=== PATIENT | male | born 1950 | race Caucasian/White ===

== ENCOUNTER 2019-06-23 06:06 | Inpatient (IN) | payer MEDICARE ==
[~2019-06-23] VITALS: Ht 185.4 cm; Wt 100.3 kg
[2019-06-23 06:18] LABS: BASOPHILS ABSOLUTE AUTO 0.03 K/mm3 (0.00-0.23); BASOPHILS PERCENT AUTO 0 % (0-2); EOSINOPHILS ABSOLUTE AUTO 0.07 K/mm3 (0.00-0.68); EOSINOPHILS PERCENT AUTO 1 % (0-6); Hematocrit 47.3 % (37.0-53.0); Hemoglobin 15.7 g/dL (13.5-17.5); IMMATURE GRAN ABSOLUTE AUTO 0.04 K/mm3 (0.00-0.10); IMMATURE GRAN PERCENT AUTO 0 % (0-1); LYMPHOCYTES ABSOLUTE AUTO 1.42 K/mm3 (0.84-5.20); LYMPHOCYTES PERCENT AUTO 14 % (21-46); MONOCYTES ABSOLUTE AUTO 0.75 K/mm3 (0.16-1.47); MONOCYTES PERCENT AUTO 7 % (4-13); Mean Corpuscular HGB 31.2 pg (26.0-34.0); Mean Corpuscular HGB Conc 33.2 g/dL (31.5-36.5); Mean Corpuscular Volume 94 fL (80-100); Mean Platelet Volume 9.6 fL (9.1-12.4); NEUTROPHILS ABSOLUTE AUTO 7.86 K/mm3 (1.96-9.15); NEUTROPHILS PERCENT AUTO 77 % (41-73); Platelet Count 169 K/mm3 (150-400); RDW Coefficient Variation 13.6 % (11.7-14.2); RDW Standard Deviation 46.9 fL (35.1-46.3); Red Blood Cell Count 5.03 M/mm3 (4.30-5.90); White Blood Cell Count 10.17 K/mm3 (4.00-11.30)
[2019-06-23 06:44] LABS: Alanine Aminotransfer (ALT/SGP 29 U/L (12-78); Albumin, Blood 3.8 g/dL (3.4-5.0); Albumin/Globulin Ratio 0.9 (0.8-1.8); Alk Phos 64 U/L (50-136); Anion Gap 7 mmol/L (6-16); Aspartate Aminotrans (AST/SGOT 52 U/L (12-37); Bilirubin, Total 0.4 mg/dL (0.1-1.0); Blood Urea Nitrogen 15 mg/dL (8-24); Bun/Creatinine Ratio 18.8 (12.0-20.0); CO2, Blood 24 mmol/L (21-32); Calcium, Blood 8.3 mg/dL (8.5-10.1); Chloride, Blood 110 mmol/L (98-108); Globulin, Blood 4.2 g/dL (2.2-4.0); Glomerular Filtration Rate >60 (60-); Glucose, Blood 133 mg/dL (70-99); Potassium, Blood 3.9 mmol/L (3.5-5.5); Sodium, Blood 141 mmol/L (136-145)
[2019-06-23 07:22] LABS: Prothrombin Time Results 10.6 Sec (9.7-11.5)
--- NOTE | 2019-06-23 10:00 | NUR ---
INITIAL ASSESSMENT PATIENT ARRIVED TO UNIT AT 0950 FROM [employer]UTUAL FUND MANAGER. PATIENT CALM, PLEASANT, COOPERATIVE. PATIENT ALERT AND ORIENTED X 4, AFEBRILE. PATIENT DENIES PAIN OR CHEST PRESSURE. PATIENT SATTING 90% AND GREATER ON RA. LUNGS CLEAR T/O. PATIENT DENIES COUGH. PATIENT IN FIRST DEGREE BLOCK WITH FREQUENT PVCS. HR 50S TO 80S. BP STABLE. GI WNL- DENIES NAUSEA. WNL- URINAL AT BEDSIDE. TR BAND TO RIGHT RADIAL CATH ACCESS SITE. 12 CC AIR INSTILLED. NO BLEEDING, BRUISING, HEMATOMA NOTED. AT BEDSIDE. PATIENT ORIENTED TO UNIT, ROOM AND CALL LIGHT. BED LOW, CALL LIGHT IN REACH. WILL CONTINUE TO MONITOR PATIENT FREQUENTLY THROUGHOUT SHIFT.
[2019-06-23 11:11] LABS: CHOL/HDL RATIO 6.1; Cholesterol 196 mg/dL (50-200); HDL Cholesterol 32 mg/dL (>39); LDL/HDL RATIO 4.5; Low Density Lipoprotein Chol 144 mg/dL (0-110); Triglycerides 99 mg/dL (30-160); Very Low Density Lipoprot Chol 19 mg/dL (6-32)
--- NOTE | 2019-06-23 11:34 | NUR ---
echocardiogram complete
--- NOTE | 2019-06-23 12:12 | NUR ---
PATIENT RESTING QUIETLY IN BED WITH NO COMPLAINTS. AFEBRILE. VSS. 2 CC AIR DEFLATED FROM R RADIAL TR BAND. NO BLEEDING, BRUISING, HEMATOMA NOTED. PATIENT ATE 50% OF LUNCH. NO NAUSEA REPORTED. NO OTHER ACUTE CHANGES TO NOTE ON AT THIS TIME. WILL CONTINUE TO MONITOR.
--- NOTE | 2019-06-23 15:34 | NUR ---
11 BEAT RUN OF VTACH NOTED. PATIENT ASYMPTOMATIC. WILL CONTINUE TO MONITOR.
--- NOTE | 2019-06-23 16:03 | NUR ---
PATIENT AFEBRILE. VSS. TR BAND DEFLATED BUT REMAINS IN PLACE. NO BLEEDING, BRUISING, HEMATOMA NOTED. NO ACUTE CHANGES TO NOTE ON. WILL CONTINUE TO MONITOR.
--- NOTE | 2019-06-23 18:56 | NUR ---
SHIFT SUMMARY PATIENT REMAINED ALERT AND ORIENTED X 4, AFEBRILE. PATIENT HAD NO COMPLAINTS OF PAIN OR DISCOMFORT THIS SHIFT. PATIENT SBA IN ROOM BECAUSE OF LINES AND CORDS. PATIENT REMAINED SATTING OVER 90% ON RA. PATIENT REMAINED IN FIRST DEGREE BLOCK WITH FREQUENT PVCS. HR MOSTLY 50S TO 80S. BP REMAINED STABLE. PATIENT HAD 11 BEAT RUN OF ASYMPTOMATIC VTACH THIS SHIFT. GI WNL. NO BM THIS SHIFT. PATIENT HAS GOOD APPETITE AND IS TOLERATING CARDIAC DIET WELL. WNL- PATIENT VOIDING LIGHT YELLOW COLORED URINE INTO BEDSIDE URINAL. TEGADERM DRESSING AND ARMBOARD TO R RADIAL SITE. SITE REMAINS WNL, WITH NO BLEEDING, BRUISING, OR HEMATOMA NOTED. AGGRASTAT INFUSING AT 18 MLS/ HOUR X 1 BAG. PATIENT CURRENTLY HAS NO COMPLAINTS. BED LOW, CALL LIGHT IN REACH. IN AND OUT T/O DAY. REPORT WILL BE GIVEN TO ONCOMING PAPER BAGS SEWING MACHINE OPERATOR NURSE SHORTLY.
--- NOTE | 2019-06-23 19:46 | NUR ---
R RADIAL ACCESS SITE IS COVERED WITH CLEAR OCCLUSIVE DRESSING. NO SIGN OF HEMATOMA OR BLEEDING. ARM BOARD IN PLACE.
[2019-06-24 03:16] LABS: Hematocrit 48.5 % (37.0-53.0); Hemoglobin 16.2 g/dL (13.5-17.5); Mean Corpuscular HGB 30.2 pg (26.0-34.0); Mean Corpuscular HGB Conc 33.4 g/dL (31.5-36.5); Mean Corpuscular Volume 90 fL (80-100); Mean Platelet Volume 9.5 fL (9.1-12.4); Platelet Count 196 K/mm3 (150-400); RDW Coefficient Variation 13.8 % (11.7-14.2); RDW Standard Deviation 45.6 fL (35.1-46.3); Red Blood Cell Count 5.37 M/mm3 (4.30-5.90); White Blood Cell Count 12.52 K/mm3 (4.00-11.30)
[2019-06-24 03:34] LABS: Anion Gap 7 mmol/L (6-16); Blood Urea Nitrogen 13 mg/dL (8-24); Bun/Creatinine Ratio 16.1 (12.0-20.0); CHOL/HDL RATIO 6.7; CO2, Blood 25 mmol/L (21-32); Calcium, Blood 8.6 mg/dL (8.5-10.1); Chloride, Blood 107 mmol/L (98-108); Cholesterol 207 mg/dL (50-200); Creatinine, Blood 0.81 mg/dL (0.60-1.20); Glomerular Filtration Rate >60 (60-); Glucose, Blood 119 mg/dL (70-99); HDL Cholesterol 31 mg/dL (>39); LDL/HDL RATIO 4.4; Low Density Lipoprotein Chol 137 mg/dL (0-110); Sodium, Blood 139 mmol/L (136-145); Triglycerides 193 mg/dL (30-160); Very Low Density Lipoprot Chol 38 mg/dL (6-32)
--- NOTE | 2019-06-24 06:22 | NUR ---
SUMMARY PT RESTING IN BED. A/O X4. R RADIAL ACCESS SITE REMAINED STABLE ALL NIGHT. ARM BOARD IN PLACE. NO ACUTE CHANGES.
--- NOTE | 2019-06-24 07:15 | NUR ---
ASSUMED CARE OF PATIENT; SEE ASSESSMENT CHARTING FOR DETAILS. PATIENT A/O X3; DENIES ACUTE C/O. LUNGS CLEAR; BIOX HIGH 90'S ON ROOM AIR. TR BAND SITE, TO R WRIST, INTACT WITHOUT SIGNS OR SX'S OF HEMATOMA, ETC. ARMBOARD REMAINS IN PLACE TO REMIND PATIENT NOT TO USE WRIST.
--- NOTE | 2019-06-24 07:20 | NUR ---
DR. SOLIZ AND DR. NIKOLAY Castellanos. HERE TO ROUND ON PATIENT; SEE ORDERS. PATIENT TO CHANGE TO MED. FLOOR STATUS WITH TELEMETRY; PROBABLE D/C TOMORROW AM.
--- NOTE | 2019-06-24 09:52 | NUR ---
PATIENT TO TRANSFER TO ROOM 331.
--- NOTE | 2019-06-24 10:15 | NUR ---
REPORT GIVEN TO ANIL MROOCHO RN.
--- NOTE | 2019-06-24 10:20 | NUR ---
TRANSFERRED TO MEDICAL FLOOR, ROOM 331, VIA W/C. WATER PUMP INSTALLER AND SPOUSE ACCOMPANYING. BELONGINGS SENT WITH PATIENT.
--- NOTE | 2019-06-24 11:46 | NUR ---
PATIENT ARRIVED TO ROOM AT 1045. DENIES ANY PAIN OR DISCOMFORT. VSS, ON RA. SR WITH PVC'S IN THE 60'S ON TELE PER PCU CLAY TEMPERER. PATIENT A/O AND UP INDEPENDENTLY IN ROOM. R RADIAL CATH SITE WNL, ARM BOARD IN PLACE. PATIENT ORIENTED TO ROOM AND USE OF CALL LIGHT. DENIES ANY NEEDS AT THIS TIME. REPORTS TOLERATING ADA DIET.
--- NOTE | 2019-06-24 15:40 | NUR ---
PATIENT A/OX4, UP INDPENDENTLY IN WALKING IN HALLS. PATIENT TRANSFERRED TO MEDICAL FLOOR TODAY FROM ICU. R RADIAL CATH SITE WNL, ARM BOARD IN PLACE TO PROTECT. PATIENT DENIES ANY PAIN OR DISCOMFORT. RX MEDICATIONS FAXED TO [facility] AND HAS ALREADY PICKED UP. PATIENT HOPES TO D/C IN AM. VSS THIS SHIFT, ON RA. SR WITH PVC'S ON TELE, DENIES ANY CHEST PAIN OR SOB. CALM AND COOPERATIVE WITH CARE. CALLS APPROPRIATELY FOR ASSISTANCE.
--- NOTE | 2019-06-25 03:23 | NUR ---
PT HAD AN UNEVENFUL SHIFT. NO COMPLAINTS OF CP OR SOB. NO TELE CALLS RECIEVED. PT REMAINED ALERT, ORIENTED, AND INDEPENDENT. VSS. WILL CONTINUE TO MONITOR.
--- NOTE | 2019-06-25 04:53 | NUR ---
PT IS AOX4 AND INDEPENDENT. NO TELEMETRY CALLS WERE RECIEVED ON THIS PATIENT. NO COMPLAINTS OF CP, SOB, OR PAIN THIS SHIFT. PT SLEPT MOST OF THE NIGHT. WILL CONTINUE TO MONITOR.
[2019-06-25] MEDS ORDERED: ASPI81CH PO (08:31)
[2019-06-25] MEDS ORDERED: Prinivil10 MG PO (08:32)
[2019-06-25] MEDS ORDERED: ATOR80 PO (08:32)
[2019-06-25] MEDS ORDERED: METO25 PO (08:33)
[2019-06-25] MEDS ORDERED: NITR.4SL SL (08:35)
[2019-06-25] MEDS ORDERED: TICA90TA PO (08:35)
--- NOTE | 2019-06-25 09:30 | NUR ---
PATIENT D/C'D TO HOME WITH . D/C INSTRUCTIONS AND EDUCATION DISCUSSED WITH PATIENT AND COPY PROVIDED. RX MEDICATIONS HAVE BEEN PICKED UP BY THE PATIENTS . DENIES ANY FURTHER QUESTIONS OR CONCERNS.
== END 2019-06-25 09:31 | disposition home or self-care (01) | DRG 247 ==
LOC: ER 06:06 → PCU 08:01 → ICUE 08:01 → MEDS 08:10 → ICUE 09:55 → MEDS 06-24 10:29 → ENPENDDIS 06-25 08:34 → MEDS 06-25 09:31
PROVIDERS: Emergency Medicine; Internal Medicine Interventional Cardiology; ADMIT Family Medicine
PROC: 027034Z Dilation of Coronary Artery, One Artery with Drug-eluting Intraluminal Device, Percutaneous Approach (ICD-10-PCS; principal; 2019-06-23)
PROC: 4A023N7 Measurement of Cardiac Sampling and Pressure, Left Heart, Percutaneous Approach (ICD-10-PCS; 2019-06-23)
PROC: B2111ZZ Fluoroscopy of Multiple Coronary Arteries using Low Osmolar Contrast (ICD-10-PCS; 2019-06-23)
PROC: B2151ZZ Fluoroscopy of Left Heart using Low Osmolar Contrast (ICD-10-PCS; 2019-06-23)
DX: I21.4 Non-ST elevation (NSTEMI) myocardial infarction (principal); I10 Essential (primary) hypertension
CPT/HCPCS: 36415; 71046; 80048; 80053; 80061; 83735; 83880; 84484; 85025; 85027; 85610; 85730; 93005; 93010; 93306; 93458; 96365; 99152; 99153; 99285-25; C1725; C1769; C1874; C1887; C1894; C9600; J1644; J2250; J3010; J3246; J7030; Q9967